=== PATIENT | female | born 1965 | race Caucasian/White ===

== ENCOUNTER 2023-08-12 08:07 | Outpatient (CLI) | payer BC | END 2023-08-12 08:08 | disposition home or self-care (01) | LOC: CSHWCC 08:07 | PROVIDERS: ATTEND Nurse Practitioner Family | DX: L89.890 Pressure ulcer of other site, unstageable (principal); C50.919 Malignant neoplasm of unspecified site of unspecified female breast; G90.09 Other idiopathic peripheral autonomic neuropathy | CPT/HCPCS: 11042; 99203; G0463 ==